=== PATIENT | female | born 1970 | race Caucasian/White ===

== ENCOUNTER → 2017-09-20 10:37 | Outpatient (CLI) | payer MEDICAID, SELFPAY ==
--- NOTE | 2017-09-20 10:44 | CT_ITS ---
STUDY: CT RIGHT KNEE WITHOUT CONTRAST REASON FOR EXAM: Female, 47 years old. Pain status post right TKR RADIATION DOSAGE (If Supplied By Facility): CTDIvol = ( 15.35 ) mGy, DLP = ( 462.44 ) mGycm TECHNIQUE: Transaxial CT imaging of the knee was performed. Coronal and sagittal images were reformatted. COMPARISON: None. FINDINGS: A total knee arthroplasty is present with normal alignment. No CT evidence of hardware failure. There is thickening of the anterior proximal tibia at the level of the tibial tubercle, likely related to remote trauma and/or remote surgery. No acute fractures are seen. No destructive lesions are seen. Suprapatellar effusion. No abscesses are identified on this noncontrast CT study. No hematomas are seen. CT/Extremity Lower without Contra IMPRESSION: Tomographically uncomplicated knee arthroplasty. Remote deformity of the proximal anterior tibia. Suprapatellar effusion. Electronically Signed: Lai Boggs MD at 4:09 EDT Tel , Service support ,
== END ==
PROVIDERS: Family Provider Internal Medicine; PCP Internal Medicine
DX: M25.561 Pain in right knee (principal); Z96.651 Presence of right artificial knee joint
CPT/HCPCS: 73700